=== PATIENT | female | born 1960 | race African-American/Black ===

== ENCOUNTER 2016-11-04 20:03 | Emergency (ER) | payer OTHER ==
[2016-11-04 20:49] VITALS: BMI 38.4
--- NOTE | 2016-11-04 21:34 | PDOC ---
History of Present Illness - General Chief Complaint: Lightheaded Stated Complaint: DIZZINESS Time Seen by Provider: 11/04/16 20:52 - History of Present Illness Initial Comments: 11/04/16 21:31 Patient is a 56 year old female with a history of HTN, HLD, DM who presents with complaints of lightheadedness. The patient reports that she began experiencing a sensation of lightheadedness while watching television 7 hours ago. She reports getting up and getting water from the kitchen as well as a cold towel to put on her forehead as well as trying a cold shower to help relieve her symptoms. She continued to be symptomatic as well as feeling unsteady while standing prompting her visit to the ED today. She reports that she had a similar episode in the past in which she received fluids which improved her symptoms. She denies any headache, weakness, chest pain, or SOB. Past History - Past Medical History Allergies/Adverse Reactions: Allergies Allergy/AdvReac Type Severity Reaction Status Date / Time shellfish derived Allergy Verified 10/05/14 09:15 FRUIT Allergy Uncoded 10/05/14 09:15 Home Medications: Ambulatory Orders Amlodipine Bes/Olmesartan Med [Alvarado 10-40 mg Tablet] 10 - 40 each PO DAILY 10/05 Aspirin [ASA -] 81 mg PO DAILY 10/05/14 Hydralazine HCl 25 mg PO DAILY 10/05/14 Amlodipine Bes/Olmesartan Med [Amlodipine-Olmesartan 10-40 mg] 1 each PO DAILY 11/04/16 Ascorbic Acid/Ascorbate Sodium [Vit C-Sussy Hips 500 mg Chew Tb] 500 mg DAILY 08/18 Aspirin [Aspirin EC] 81 mg PO DAILY 11/04/16 Cyclobenzaprine HCl 5 mg PO DAILY 11/04/16 Hydrochlorothiazide 25 mg PO DAILY 11/04/16 Loratadine 10 mg PO DAILY 11/04/16 Anemia: No Asthma: No Cancer: No Cardiac Disorders: Yes CVA: No COPD: No CHF: No Dementia: No Diabetes: No GI Disorders: No Disorders: No HTN: Yes Hypercholesterolemia: Yes Liver Disease: No Seizures: No Thyroid Disease: No - Surgical History Abdominal Surgery: No Appendectomy: No Cardiac Surgery: No Cholecystectomy: No Lung Surgery: No Neurologic Surgery: No Orthopedic Surgery: Yes (Ankle) - Psycho/Social/Smoking Cessation Hx Anxiety: No Suicidal Ideation: No Smoking Status: No Smoking History: Unknown if ever smoked Have you smoked in the past 12 months: No Number of Cigarettes Smoked Daily: 0 Hx Alcohol Use: No Drug/Substance Use Hx: No Substance Use Type: None Hx Substance Use Treatment: No Review of Systems - Review of Systems Constitutional: No: Chills, Fever, Weakness HEENTM: No: Recent change in vision, Double Vision Respiratory: No: Cough, Shortness of Breath Cardiac (ROS): No: Chest Pain, Palpitations, Chest Tightness ABD/GI: No: Constipated, Diarrhea, Nausea, Vomiting : No: Dysuria Neurological: No: Headache, Numbness, Paresthesia *Physical Exam - Vital Signs Last Vital Signs Temp Pulse Resp BP Pulse Ox 98.6 F 68 16 117/68 100 11/04/16 20:46 11/04/16 20:46 11/04/16 20:46 11/04/16 20:46 11/04/16 20:46 - Physical Exam General Appearance: Yes: Nourished, Obese. No: Apparent Distress HEENT: positive: EOMI, CHERYL, Normal Voice Respiratory/Chest: positive: Lungs Clear, Normal Breath Sounds. negative: Rales , Rhonchi, Wheezing Cardiovascular: positive: Regular Rhythm, Regular Rate. negative: Murmur, Gallop/S3, Gallop/S4 Gastrointestinal/Abdominal: positive: Normal Bowel Sounds, Soft. negative: Guarding, Rebound, Tenderness Extremity: positive: Normal Capillary Refill. negative: Coldness, Cyanosis Integumentary: positive: Normal Color, Dry, Warm Neurologic: positive: bean sorter II-XII NML intact, Fully Oriented, Alert, Normal Mood/ Affect, Normal Response ED Treatment Course - LABORATORY CBC & Chemistry Diagram: 11/05/16 04:18 11/05/16 04:18 Medical Decision Making - Medical Decision Making 11/04/16 21:52 Patient is a 56 year old female with a history of HTN, HLD, DM who presents with a complaint of lightheadedness. Given the patient's history, relatively benign physical exam, and previous similar presentation due to dehydration, we believe that dehydration may be the most likely cause of her symptoms. However , given the patients age and comorbidities, we feel it is reasonable to rule out any intracranial process though less likely given her non-focal neurological exam. We will obtain labs to evaluate her electrolyte status as well as obtain a head CT to rule out intracranial process. We will give her some fluids in the ED to rehydrate her. 11/05/16 18:39 Patient's labs demonstrated hypokalemia and we will repleat her potassium and recheck labs to make sure it trends positive. Patient's head CT was read by the radiologist as no intracranial process. *DC/Admit/Observation/Transfer Diagnosis at time of Disposition: Hypokalemia, Dizziness - Discharge Dispostion Disposition: HOME Condition at time of disposition: Improved - Patient Instructions Printed Discharge Instructions: DI for Hypokalemia, DI for Dizziness-Nonvertigo - Attestations Physician Attestion: 11/04/16 22:04 I, Dr. Maciej Grayson, attest that this document has been prepared under my direction and personally reviewed by me in its entirety. I further attest, that it accurately reflects all work, treatment, procedures and medical decision -making performed by me.
[2016-11-04] MEDS ORDERED: SODIUM CHLORIDE 1,000 ML IV STA (21:41)
[2016-11-04 22:51] LABS: INR 0.99 (0.82-1.09); PROTHROMBIN TIME (PATIENT) 10.9 SEC (9.98-11.88)
[2016-11-04 22:58] LABS: ALBUMIN 3.7 g/dl (3.4-5.0); ANION GAP 10 (8-16); BILIRUBIN,TOTAL 0.4 mg/dL (0.2-1.0); CALCIUM 8.8 mg/dL (8.5-10.1); CO2 29 mmol/L (21-32); CREATININE 0.7 mg/dL (0.55-1.02); GLUCOSE,RANDOM 102 mg/dL (74-106); SGOT/AST 21 U/L (15-37); SGPT/ALT 22 U/L (12-78)
[2016-11-04 22:59] LABS: ALK PHOS 93 U/L (45-117)
[2016-11-04] MEDS ORDERED: POTASSIUM CHLORIDE TABS 20 MEQ TABLET.ER (FP) PO ONE ×2 (23:03→23:20)
--- NOTE | 2016-11-04 23:11 | PDOC ---
*Physical Exam - Vital Signs Last Vital Signs Temp Pulse Resp BP Pulse Ox 98.6 F 68 16 117/68 100 11/04/16 20:46 11/04/16 20:46 11/04/16 20:46 11/04/16 20:46 11/04/16 20:46 <Jovi Cardenas - Last Filed: 11/04/16 23:25> - Vital Signs Last Vital Signs Temp Pulse Resp BP Pulse Ox 98.6 F 68 16 117/68 100 11/04/16 20:46 11/04/16 20:46 11/04/16 20:46 11/04/16 20:46 11/04/16 20:46 <Gallo Cabrera - Last Filed: 11/05/16 05:05> Heart Score/ECG Review - ECG Impressions Comment:: 11/04/16 23:25 Sinus bradycardia. Possible left atrial enlargement. Left axis deviation. Left ventricular hypertrophy. Cannot rule out septa infarct, age undetermined. Abnormal ECG. <Jovi Cardenas - Last Filed: 11/04/16 23:25> ED Treatment Course - LABORATORY CBC & Chemistry Diagram: 11/04/16 22:29 - ADDITIONAL ORDERS Additional order review: Laboratory Results 11/04/16 11/04/16 22:29 22:29 INR 0.99 Sodium 129 L Potassium 2.9 L* D Chloride 90 L D Carbon Dioxide 29 Anion Gap 10 BUN 9 D Creatinine 0.7 Creat Clearance w eGFR > 60 Random Glucose 102 Calcium 8.8 Total Bilirubin 0.4 AST 21 D ALT 22 Alkaline Phosphatase 93 Total Protein 7.0 Albumin 3.7 - Medications Given in the ED: ED Medications Discontinued Medications Generic Name Dose Route Start Last Admin Trade Name Freq PRN Reason Stop Dose Admin Sodium Chloride 1,000 mls @ 1,000 mls/hr 11/04/16 21:41 11/04/16 21:45 Normal Saline - IV 11/04/16 22:40 1,000 mls/hr ASDIR STA Administration Potassium Chloride 40 meq 11/04/16 23:03 11/04/16 23:22 K-Dur - PO 11/04/16 23:04 40 meq ONCE ONE Administration <Jovi Cardenas - Last Filed: 11/04/16 23:25> - LABORATORY CBC & Chemistry Diagram: 11/05/16 04:18 07/05/17 04:18 - ADDITIONAL ORDERS Additional order review: Laboratory Results 11/04/16 11/04/16 22:29 22:29 INR 0.99 Sodium 129 L Potassium 2.9 L* D Chloride 90 L D Carbon Dioxide 29 Anion Gap 10 BUN 9 D Creatinine 0.7 Creat Clearance w eGFR > 60 Random Glucose 102 Calcium 8.8 Total Bilirubin 0.4 AST 21 D ALT 22 Alkaline Phosphatase 93 Total Protein 7.0 Albumin 3.7 - Medications Given in the ED: ED Medications Discontinued Medications Generic Name Dose Route Start Last Admin Trade Name Shawnq PRN Reason Stop Dose Admin Sodium Chloride 1,000 mls @ 1,000 mls/hr 11/04/16 21:41 11/04/16 21:45 Normal Saline - IV 11/04/16 22:40 1,000 mls/hr ASDIR STA Administration <Gallo Cabrera - Last Filed: 11/05/16 05:05> *DC/Admit/Observation/Transfer <Jovi Cardenas - Last Filed: 11/04/16 23:25> - Discharge Dispostion Admit: No <Gallo Cabrera - Last Filed: 11/05/16 05:05> Diagnosis at time of Disposition: Hypokalemia, Dizziness - Discharge Dispostion Disposition: HOME Condition at time of disposition: Improved - Patient Instructions Printed Discharge Instructions: DI for Hypokalemia, DI for Dizziness-Nonvertigo
[2016-11-04] MEDS ORDERED: KCL 10 MEQ IVPB 100 ML IVPB ONE (23:34)
[2016-11-04] MEDS: KCL 10 MEQ IVPB 100 ML IVPB SCH (23:44)
[2016-11-05] MEDS: KCL 10 MEQ IVPB 100 ML IVPB SCH (02:10)
[2016-11-05] MEDS ORDERED: KCL 10 MEQ IVPB 100 ML IVPB ONE (02:18)
[2016-11-05] MEDS ORDERED: POTASSIUM CHLORIDE TABS 20 MEQ TABLET.ER (FP) PO ONE ×2 (02:59→03:48)
[2016-11-05 04:25] LABS: BASOPHIL 1.5 % (0-2.0); EOSINOPHIL 3.6 % (0-4.5); MCH 24.9 pg (25.7-33.7); MCHC 32.2 g/dl (32.0-36.0); MEAN CELL VOLUME 77.3 fl (80-96); MEAN PLT VOLUME 7.8 fl (7.5-11.1); NEUTROPHILS 35.2 % (42.8-82.8); PLATELET COUNT 258 K/MM3 (134-434); RDW 17.5 % (11.6-15.6); WHITE BLOOD COUNT 3.1 K/mm3 (4.0-10.0)
[2016-11-05 04:47] LABS: ANION GAP 6 (8-16); CALCIUM 8.6 mg/dL (8.5-10.1); CO2 28 mmol/L (21-32); CREATININE 0.7 mg/dL (0.55-1.02); GLUCOSE,RANDOM 103 mg/dL (74-106)
[2016-11-05 05:39] VITALS: BP 120/70; PULSE 70; TEMP 98.3
--- NOTE | 2016-11-05 10:42 | EKG ---
Test Reason : Blood Pressure : / mmHG Vent. Rate : 056 BPM Atrial Rate : 056 BPM P-R Int : 178 ms QRS Dur : 096 ms QT Int : 440 ms P-R-T Axes : 062 -43 -18 degrees QTc Int : 424 ms SINUS BRADYCARDIA POSSIBLE LEFT ATRIAL ENLARGEMENT LEFT AXIS DEVIATION LEFT VENTRICULAR HYPERTROPHY CANNOT RULE OUT SEPTAL INFARCT (CITED ON OR BEFORE 05-OCT-2014) ABNORMAL ECG WHEN COMPARED WITH ECG OF 06-OCT-2014 08:31, PREMATURE SUPRAVENTRICULAR COMPLEXES ARE NO LONGER PRESENT QUESTIONABLE CHANGE IN INITIAL FORCES OF SEPTAL LEADS Confirmed by CHANDLER CLAROS MD ([id number]) on 11/05/2016 10:42:07 AM Referred By: Confirmed By:CHANDLER CLAROS MD
== END 2016-11-05 05:40 | disposition home or self-care (01) ==
LOC: JER 20:03
PROC: 3E0337Z Introduction of Electrolytic and Water Balance Substance into Peripheral Vein, Percutaneous Approach (ICD-10-PCS; principal; 2016-11-04)
PROC: 3E033GC Introduction of Other Therapeutic Substance into Peripheral Vein, Percutaneous Approach (ICD-10-PCS; 2016-11-04)
DX: E87.6 Hypokalemia (principal); I10 Essential (primary) hypertension; E78.00 Pure hypercholesterolemia, unspecified
CPT/HCPCS: 36415; 70450-TC; 80048; 80053; 85025; 85610; 93005; 93010; 96361; 96365; 96366; 99284-25

== ENCOUNTER 2016-11-27 14:40 | Emergency (ER) | payer OTHER ==
--- NOTE | 2016-11-27 14:58 | PDOC ---
History of Present Illness - General History Source: Patient Exam Limitations: No Limitations - History of Present Illness Initial Comments: 11/27/16 15:39 Patient is a 56 year old female with a history of HTN, HLD, DM who presents with complaints of lightheadedness. Pt was seen in the ED on 11/04 for similar complaints. She states that she began to experience dizziness while she was eating lunch. Pt put a cold rag on her head and was standing in front of the AC to try to relieve her symptoms. Symptoms continued to feel dizzy and called EMS. The patient denies any fever, chills, nausea, vomiting, or abdominal pain. She denies any headache. <Libby Melchor - Last Filed: 11/27/16 15:39> <Jet Le - Last Filed: 11/27/16 18:49> - General Stated Complaint: DIZZINESS Time Seen by Provider: 11/27/16 14:50 Past History <Libby Melchor - Last Filed: 11/27/16 15:39> - Past Medical History Anemia: No Asthma: No Cancer: No Cardiac Disorders: Yes CVA: No COPD: No CHF: No Dementia: No Diabetes: No GI Disorders: No Disorders: No HTN: Yes Hypercholesterolemia: Yes Liver Disease: No Seizures: No Thyroid Disease: No - Surgical History Abdominal Surgery: No Appendectomy: No Cardiac Surgery: No Cholecystectomy: No Lung Surgery: No Neurologic Surgery: No Orthopedic Surgery: Yes (Ankle) - Immunization History Immunization Up to Date: Yes - Psycho/Social/Smoking Cessation Hx Anxiety: No Suicidal Ideation: No Smoking Status: No Smoking History: Unknown if ever smoked Have you smoked in the past 12 months: No Number of Cigarettes Smoked Daily: 0 Hx Alcohol Use: No Drug/Substance Use Hx: No Substance Use Type: None Hx Substance Use Treatment: No <Jet Le - Last Filed: 11/27/16 18:49> - Past Medical History Allergies/Adverse Reactions: Allergies Allergy/AdvReac Type Severity Reaction Status Date / Time shellfish derived Allergy Verified 11/27/16 17:47 FRUIT Allergy Uncoded 11/27/16 17:47 Home Medications: Ambulatory Orders Amlodipine Bes/Olmesartan Med [Alvarado 10-40 mg Tablet] 10 - 40 each PO DAILY 10/05 Hydralazine HCl 25 mg PO DAILY 06/04/15 Amlodipine Bes/Olmesartan Med [Amlodipine-Olmesartan 10-40 mg] 1 each PO DAILY 11/04/16 Ascorbic Acid/Ascorbate Sodium [Vit C-Sussy Hips 500 mg Chew Tb] 500 mg DAILY 08/18 Aspirin [Aspirin EC] 81 mg PO DAILY 11/04/16 Cyclobenzaprine HCl 5 mg PO DAILY 11/04/16 Hydrochlorothiazide 25 mg PO DAILY 11/04/16 Loratadine 10 mg PO DAILY 11/04/16 Cephalexin Monohydrate [Keflex -] 500 mg PO Q6H #40 capsule 11/27/16 Meclizine HCl [Antivert -] 25 mg PO TID #90 tablet 11/27/16 Review of Systems - Review of Systems Able to Perform ROS?: Yes Comments:: 11/27/16 15:40 GENERAL/CONSTITUTIONAL: No fever or chills. No weakness. HEAD, EYES, EARS, NOSE AND THROAT: No change in vision. No ear pain or discharge. No sore throat. CARDIOVASCULAR: No chest pain or shortness of breath. RESPIRATORY: No cough, wheezing, or hemoptysis. SKIN: No rash GASTROINTESTINAL: No nausea, vomiting, diarrhea or constipation. GENITOURINARY: No dysuria, frequency, or change in urination. MUSCULOSKELETAL: No joint or muscle swelling or pain. No neck or back pain. NEUROLOGIC: No headache, loss of consciousness, or change in strength/ sensation. +dizziness ENDOCRINE: No increased thirst. No abnormal weight change. HEMATOLOGIC/LYMPHATIC: No anemia, easy bleeding, or history of blood clots. ALLERGIC/IMMUNOLOGIC: No hives or skin allergy. <Libby Melchor - Last Filed: 11/27/16 15:39> *Physical Exam - Vital Signs Last Vital Signs Temp Pulse Resp BP Pulse Ox 98.2 F 71 18 127/52 96 11/27/16 14:45 11/27/16 14:45 11/27/16 14:45 11/27/16 14:45 11/27/16 14:45 - Physical Exam Comments: 11/27/16 15:41 GENERAL: Awake, alert, and fully oriented, in no acute distress HEAD: No signs of trauma ENT: Auricles normal inspection, hearing grossly normal, nares patent, oropharynx clear EYES: PERRLA, EOMI, sclera anicteric, conjunctiva clear without exudates. Moist mucosa. NECK: Normal ROM, supple, no lymphadenopathy, JVD, or masses LUNGS: Breath sounds equal, clear to auscultation bilaterally. No wheezes, and no crackles HEART: Regular rate and rhythm, normal S1 and S2, no murmurs, rubs or gallops ABDOMEN: Soft, nontender, normoactive bowel sounds. No guarding, no rebound. No masses EXTREMITIES: Normal range of motion, no edema. No clubbing or cyanosis. No cords, erythema, or tenderness NEUROLOGICAL: Cranial nerves II through XII grossly intact. Normal speech. SKIN: Warm, Dry, normal turgor, no rashes or lesions noted <Libby Melchor - Last Filed: 11/27/16 15:39> ED Treatment Course - LABORATORY CBC & Chemistry Diagram: 11/27/16 15:46 11/27/16 17:53 <Jet Le - Last Filed: 11/27/16 18:49> *DC/Admit/Observation/Transfer - Attestations Scribe Attestion: 11/27/16 15:41 Documentation prepared by Libby Melchor, acting as ophthalmic medical technologist for Jet Le MD. <Libby Melchor - Last Filed: 11/27/16 15:39> - Discharge Dispostion Admit: No - Attestations Physician Attestion: 11/27/16 14:50 I, Dr. Jet Le, attest that this document has been prepared under my direction and personally reviewed by me in its entirety. I further attest, that it accurately reflects all work, treatment, procedures and medical decision -making performed by me. <Jet Le - Last Filed: 11/27/16 18:49> Diagnosis at time of Disposition: Vertigo Urinary tract infection Qualifiers: Urinary tract infection type: site unspecified Hematuria presence: without hematuria Qualified Code(s): N39.0 - Urinary tract infection, site not specified - Discharge Dispostion Disposition: HOME Condition at time of disposition: Good - Prescriptions Prescriptions: Meclizine HCl [Antivert -] 25 mg PO TID #90 tablet Cephalexin Monohydrate [Keflex -] 500 mg PO Q6H #40 capsule - Referrals Referrals: Ammon Singh MD [Primary Care Provider] - - Patient Instructions Printed Discharge Instructions: DI for Vertigo, DI for Meniere's Disease, DI for Urinary Tract Infection (UTI) Additional Instructions: Mrs Palm - So sorry this is still going on. Use the antivert for the dizziness. Keflex is four times a day for ten days for a UTI. Return to us if problems. Follow up with your doctor next week. Hope you feel better soon. Best- Dr. Jet Le
[2016-11-27 15:12] VITALS: TEMP 98.2; BMI 37.8
[2016-11-27] MEDS ORDERED: MECLIZINE HCL 25 MG TABLET (FP) PO ONE ×2 (15:43→18:57)
[2016-11-27] MEDS ORDERED: MECLIZINE HCL 25 MG TABLET (FP) ONE ×2 (15:52→19:06)
[2016-11-27 16:25] LABS: BASOPHIL 0.7 % (0-2.0); EOSINOPHIL 1.2 % (0-4.5); MCH 25.5 pg (25.7-33.7); MCHC 32.7 g/dl (32.0-36.0); MEAN CELL VOLUME 77.8 fl (80-96); NEUTROPHILS 72.6 % (42.8-82.8); PLATELET COUNT 342 K/MM3 (134-434); RDW 17.6 % (11.6-15.6); WHITE BLOOD COUNT 6.7 K/mm3 (4.0-10.0)
[2016-11-27 16:35] LABS: INR 0.98 (0.82-1.09); PROTHROMBIN TIME (PATIENT) 10.8 SEC (9.98-11.88)
[2016-11-27 16:36] LABS: URINE APPEARANCE CLEAR; URINE BILIRUBIN NEGATIVE (NEGATIVE); URINE BLOOD NEGATIVE (NEGATIVE); URINE COLOR STRAW; URINE GLUCOSE (UA) NEGATIVE (NEGATIVE); URINE KETONE NEGATIVE (NEGATIVE); URINE LEUK ESTERASE TRACE (NEGATIVE); URINE NITRITE NEGATIVE (NEGATIVE); URINE PROTEIN NEGATIVE (NEGATIVE); URINE UROBILINOGEN NEGATIVE mg/dL (0.2-1.0)
[2016-11-27 17:51] LABS: URINE RBC <1/HPF /hpf (0-3)
[2016-11-27 17:52] LABS: URINE WBC 1/HPF /hpf (3-5)
[2016-11-27 18:37] LABS: ALBUMIN 3.4 g/dl (3.4-5.0); ANION GAP 9 (8-16); BILIRUBIN,TOTAL 0.5 mg/dL (0.2-1.0); CALCIUM 9.3 mg/dL (8.5-10.1); CO2 28 mmol/L (21-32); CREATININE 0.7 mg/dL (0.55-1.02); GLUCOSE,RANDOM 77 mg/dL (74-106); SGOT/AST 17 U/L (15-37); SGPT/ALT 19 U/L (12-78); TOT PROT 7.2 g/dl (6.4-8.2)
[2016-11-27 18:40] LABS: ALK PHOS 87 U/L (45-117); TROPONIN I < 0.02 ng/ml (0.00-0.05)
[2016-11-27] MEDS ORDERED: CEPHALEXIN MONOHYDRATE 500 MG CAPSULE (UD) PO ONE (18:57)
[2016-11-27] MEDS ORDERED: CEPHALEXIN MONOHYDRATE 250 MG CAPSULE (FP) ONE (19:07)
[2016-11-27 19:16] VITALS: BP 130/70; PULSE 72
--- NOTE | 2016-11-28 09:21 | EKG ---
Test Reason : Blood Pressure : / mmHG Vent. Rate : 080 BPM Atrial Rate : 080 BPM P-R Int : 156 ms QRS Dur : 090 ms QT Int : 394 ms P-R-T Axes : 061 -49 010 degrees QTc Int : 454 ms NORMAL SINUS RHYTHM LEFT ANTERIOR FASCICULAR BLOCK MODERATE VOLTAGE CRITERIA FOR LVH, MAY BE NORMAL VARIANT NONSPECIFIC ST ABNORMALITY ABNORMAL ECG Confirmed by JORDI TORRES MD ([id number]) on 11/28/2016 9:21:19 AM Referred By: Confirmed By:JORDI TORRES MD
== END 2016-11-27 19:56 | disposition home or self-care (01) ==
LOC: JER 14:40
DX: N39.0 Urinary tract infection, site not specified (principal); R42 Dizziness and giddiness; I10 Essential (primary) hypertension; E78.00 Pure hypercholesterolemia, unspecified
CPT/HCPCS: 36415; 80053; 81003; 81015; 82550; 83690; 84484; 85025; 85610; 93005; 93010; 99282-25

== ENCOUNTER 2017-10-20 11:25 | Observation (INO) | payer OTHER ==
[2017-10-20] MEDS ORDERED: SODIUM CHLORIDE 1,000 ML IV STA (11:41)
[2017-10-20] MEDS ORDERED: FAMOTIDINE 20 MG/50 ML IVPB 20 MG/50 ML MG IVPB ONE ×2 (11:42→11:53)
[2017-10-20] MEDS ORDERED: methylPREDNISolone NA SUCC 125 MG/2 ML VIAL IVPUSH ONE (11:42)
--- NOTE | 2017-10-20 11:48 | PDOC ---
History of Present Illness - General Chief Complaint: Syncope/Near Syncope Stated Complaint: Syncope/Near Syncope Time Seen by Provider: 10/20/17 11:28 History Source: Patient, EMS, Other (ent doc) - History of Present Illness Timing/Duration: 1 hour Severity: severe Associated Symptoms: reports: nausea/vomiting. denies: chest pain, diaphoresis , seizure Past History - Past Medical History Allergies/Adverse Reactions: Allergies Allergy/AdvReac Type Severity Reaction Status Date / Time shellfish derived Allergy Verified 11/27/16 17:47 FRUIT Allergy Uncoded 11/27/16 17:47 Home Medications: Ambulatory Orders Amlodipine Bes/Olmesartan Med [Alvarado 10-40 mg Tablet] 10 - 40 each PO DAILY 10/05 Hydralazine HCl 25 mg PO DAILY 10/05/14 Amlodipine Bes/Olmesartan Med [Amlodipine-Olmesartan 10-40 mg] 1 each PO DAILY 11/04/16 Ascorbic Acid/Ascorbate Sodium [Vit C-Sussy Hips 500 mg Chew Tb] 500 mg DAILY 08/18 Aspirin [Aspirin EC] 81 mg PO DAILY 11/04/16 Cyclobenzaprine HCl 5 mg PO DAILY 11/04/16 Hydrochlorothiazide 25 mg PO DAILY 11/04/16 Loratadine 10 mg PO DAILY 11/04/16 Cephalexin Monohydrate [Keflex -] 500 mg PO Q6H #40 capsule 11/27/16 Meclizine HCl [Antivert -] 25 mg PO TID #90 tablet 11/27/16 Anemia: No Asthma: No Cancer: No Cardiac Disorders: Yes CVA: No COPD: No CHF: No Dementia: No Diabetes: No GI Disorders: No Disorders: No HTN: Yes Hypercholesterolemia: Yes Liver Disease: No Seizures: No Thyroid Disease: No - Surgical History Abdominal Surgery: No Appendectomy: No Cardiac Surgery: No Cholecystectomy: No Lung Surgery: No Neurologic Surgery: No Orthopedic Surgery: Yes (Ankle) - Immunization History Immunization Up to Date: Yes - Suicide/Smoking/Psychosocial Hx Smoking Status: No Smoking History: Unknown if ever smoked Have you smoked in the past 12 months: No Number of Cigarettes Smoked Daily: 0 Hx Alcohol Use: No Drug/Substance Use Hx: No Substance Use Type: None Hx Substance Use Treatment: No Review of Systems - Review of Systems Constitutional: No: Fever Respiratory: No: Shortness of Breath, Wheezing Cardiac (ROS): No: Chest Pain ABD/GI: Yes: Nausea. No: Vomiting *Physical Exam - Vital Signs Last Vital Signs Temp Pulse Resp BP Pulse Ox 97.3 F L 56 L 16 95/65 97 10/20/17 11:25 10/20/17 11:25 10/20/17 11:25 10/20/17 11:25 10/20/17 11:25 - Physical Exam General Appearance: Yes: Appropriately Dressed. No: Apparent Distress HEENT: positive: Normal Voice, Pharynx Normal, Other (no angioedema). negative : Scleral Icterus (R), Scleral Icterus (L), Muffled/Hoarse voice Neck: positive: Supple. negative: Stridor Respiratory/Chest: positive: Lungs Clear, Normal Breath Sounds. negative: Respiratory Distress Cardiovascular: positive: Regular Rate, S1, S2 Gastrointestinal/Abdominal: positive: Soft. negative: Tender Integumentary: positive: Dry, Warm Neurologic: positive: Fully Oriented, Alert, Normal Mood/Affect ED Treatment Course - LABORATORY CBC & Chemistry Diagram: 10/20/17 11:54 10/20/17 11:54 Medical Decision Making - Medical Decision Making 10/20/17 11:44 57 yo F, h/o HTN, HLD, GERD, cochlear implants, multiple environmental allergies and currently undergoing build-up phase of allergen immunotherapy ( currently on highest desensitization dose), s/p immunotherapy this am in ENT clinic and now BIB EMS after presumed anaphylactic rxn. Pt states several minutes after receiving injections this am, she began feeling dizzy and not feeling well. BP at scene 80/50 and at some point, pt became unresponsive per EMT. was immediately given 0.3 mg IM epi by Dr Langford of ENT w/ immediate recovery. Pt c/o nausea and vague abd pain at scene. Has since been given 500 mL IV fluid and a dose of Zofran enroute by EMS. Patient states she feels a lot better. Denies throat pain, voice changes, stridor, chest pain or shortness of breath at this time. No history of anaphylaxis in the past. No known medication allergy. Is allergic to shellfish See exam Anaphylaxis Improved w/ epipen but hypotensive in ED No resp distress at this time w/ clear chets/lungs -benadryl -solumedrol -pepcid -contact Dr Langford for collateral info -m/l admit 10/20/17 12:[address] Langford who confirmed information above. [facility] patient is currently receiving allergen immunotherapy for pollen, weed, cockroach, etc. and currently on highest dose of desensitizing injections. [facility] patient has never had an allergic reaction to injections in past and that it is possible that she developed anaphylaxis now given current high dose of desensitizing injections. Agrees with Benadryl and Pepcid in ED, but [facility] would hold off on giving solu-medrol given that patient gets very anxious after given meds and that there is no proven benefit to steroids in managing anaphylaxis. Favian states he would like to be contacted on his mobile phone at [phone] to get update on patient 10/20/17 13:53 Case d/w Dr Ammon Singh who wants pt admitted to tele under Dr Green. Dr Green made aware. Pt remains stable now w/ BP of 121/70 *DC/Admit/Observation/Transfer Diagnosis at time of Disposition: Anaphylaxis Qualifiers: Encounter type: initial encounter Qualified Code(s): T78.2XXA - Anaphylactic shock, unspecified, initial encounter - Discharge Dispostion Condition at time of disposition: Improved Decision to Admit order: Yes - Referrals Referrals: Ammon Singh MD [Primary Care Provider] - - Patient Instructions - Post Discharge Activity
[2017-10-20] MEDS ORDERED: methylPREDNISolone NA SUCC 125 MG/2 ML VIAL ONE (11:53)
[2017-10-20 13:25] LABS: CHLORIDE 112 mmol/L (98-107); POTASSIUM 3.8 mmol/L (3.5-5.1); SODIUM 144 mmol/L (136-145)
[2017-10-20 13:28] LABS: BLOOD UREA NITROGEN 22 mg/dL (7-18); GLUCOSE,RANDOM 111 mg/dL (74-106)
[2017-10-20 13:29] LABS: ALBUMIN 3.3 g/dl (3.4-5.0); ANION GAP 10 (8-16); BILIRUBIN,TOTAL 0.3 mg/dL (0.2-1.0); CALCIUM 8.2 mg/dL (8.5-10.1); CO2 22 mmol/L (21-32); CREATININE 0.8 mg/dL (0.55-1.02); SGOT/AST 14 U/L (15-37)
[2017-10-20 13:33] LABS: ALK PHOS 86 U/L (45-117); SGPT/ALT 20 U/L (12-78)
[2017-10-20 13:36] LABS: TOT PROT 6.5 g/dl (6.4-8.2)
[2017-10-20 15:05] LABS: ALBUMIN 3.4 g/dl (3.4-5.0); ALK PHOS 88 U/L (45-117); ANION GAP 8 (8-16); BILIRUBIN,TOTAL 0.4 mg/dL (0.2-1.0); BLOOD UREA NITROGEN 20 mg/dL (7-18); CALCIUM 8.1 mg/dL (8.5-10.1); CHLORIDE 111 mmol/L (98-107); CO2 25 mmol/L (21-32); CREATININE 0.7 mg/dL (0.55-1.02); GLUCOSE,RANDOM 83 mg/dL (74-106); POTASSIUM 3.9 mmol/L (3.5-5.1); SGOT/AST 15 U/L (15-37); SGPT/ALT 21 U/L (12-78); SODIUM 144 mmol/L (136-145); TOT PROT 6.7 g/dl (6.4-8.2)
--- NOTE | 2017-10-20 16:00 | EKG ---
Test Reason : Blood Pressure : / mmHG Vent. Rate : 074 BPM Atrial Rate : 074 BPM P-R Int : 172 ms QRS Dur : 090 ms QT Int : 416 ms P-R-T Axes : 058 -51 -32 degrees QTc Int : 461 ms SINUS RHYTHM WITH PREMATURE ATRIAL COMPLEXES LEFT ANTERIOR FASCICULAR BLOCK MODERATE VOLTAGE CRITERIA FOR LVH, MAY BE NORMAL VARIANT ANTEROSEPTAL INFARCT , AGE UNDETERMINED T WAVE ABNORMALITY, CONSIDER INFEROLATERAL ISCHEMIA ABNORMAL ECG Confirmed by MD MICHAELA, DAVE ([id number]) on 10/20/2017 3:59:43 PM Referred By: Confirmed By:DAVE JENNINGS MD
[2017-10-20 19:38] LABS: BASO % 0.3 % (0-2.0); HEMATOCRIT 35.9 % (32.4-45.2); HEMOGLOBIN 11.5 GM/dL (10.7-15.3); LYMPH % 4.6 % (8-40); MCH 24.7 pg (25.7-33.7); MCHC 32.1 g/dl (32.0-36.0); MEAN CELL VOLUME 76.9 fl (80-96); MEAN PLT VOLUME 8.2 fl (7.5-11.1); MONO % 0.6 % (3.8-10.2); NEUT % 94.5 % (42.8-82.8); PLATELET COUNT 296 K/MM3 (134-434); RBC 4.67 M/mm3 (3.60-5.2); RDW 17.2 % (11.6-15.6); WHITE BLOOD COUNT 9.7 K/mm3 (4.0-10.0)
[2017-10-20] MEDS ORDERED: diphenhydrAMINE HCL 25 MG CAPSULE (FP) PO PRN (22:00)
--- NOTE | 2017-10-20 22:03 | HP ---
Admitting History and Physical - Admission History of Present Illness: Pt is a 57 y/o female w/ PMH significant for HTN, HLD, GERD, hearing loss and cochlear implants. Pt is seeing an ENT due to multiple environmental allergies and currently undergoing build-up phase of allergen immunotherapy (currently on highest desensitization dose). Pt was in ENT office and had received an allergy shot and subsequently developed dizzyness, nausea w/ LOC. In the ENT office when pt became unresponsive she was given 0.3 mg IM epi by Dr Langford of ENT w/ immediate recovery. 911 was called and was brought into ER by EMS after presumed anaphylactic rxn. Initially BP at scene was 80/50 and was given IVF. Pt is now feeling fine w/ no further complaints. - Past Medical History [employer]: Yes: Other ("mild" mental deficiency) Cardiovascular: Yes: HTN, Hyperlipdemia - Smoking History Smoking history: Unknown if ever smoked Have you smoked in the past 12 months: No Aproximately how many cigarettes per day: 0 - Alcohol/Substance Use Hx Alcohol Use: No History of Substance Use: reports: None - Social History ADL: Independent History of Recent Travel: No Home Medications - Allergies Allergies/Adverse Reactions: Allergies Allergy/AdvReac Type Severity Reaction Status Date / Time shellfish derived Allergy Verified 11/27/16 17:47 FRUIT Allergy Uncoded 11/27/16 17:47 - Home Medications Home Medications: Ambulatory Orders Amlodipine Bes/Olmesartan Med [Alvarado 10-40 mg Tablet] 1 each PO DAILY 10/20/17 Ascorbic Acid [Vitamin C] 500 mg PO DAILY 10/20/17 Aspirin [Ecotrin] 81 mg PO DAILY 10/20/17 Pantoprazole Sodium [Protonix] 40 mg PO DAILY 10/20/17 Family Disease History - Family Disease History Family History: Unremarkable Family Disease History: Heart Disease: Mother (mild IN in her ?60s), Brother ( IN early 60s) Review of Systems - Review of Systems Constitutional: reports: No Symptoms Neck: reports: No Symptoms Cardiovascular: reports: No Symptoms Respiratory: reports: No Symptoms Gastrointestinal: reports: Nausea Neurological: reports: Change in LOC Physical Examination Vital Signs: Vital Signs Temperature 98.2 F 10/20/17 20:59 Pulse Rate 73 10/20/17 20:59 Respiratory Rate 17 10/20/17 20:59 Blood Pressure 135/74 10/20/17 20:59 O2 Sat by Pulse Oximetry (%) 99 10/20/17 20:59 Eyes: Yes: WNL Neck: Yes: WNL, Supple Cardiovascular: Yes: WNL, Regular Rate and Rhythm Respiratory: Yes: WNL, Regular, CTA Bilaterally Gastrointestinal: Yes: WNL, Normal Bowel Sounds, Soft Musculoskeletal: Yes: WNL Extremities: Yes: WNL Edema: No Neurological: Yes: WNL, Alert, Oriented ...Motor Strength: WNL Labs: CBC, BMP 10/20/17 18:55 10/20/17 13:35 Problem List - Problems (1) Syncope Assessment/Plan: Probable vasovagal Due to anaphylactic rx'n Monitor on tele Check echo Cardio consult Check serial cpk/troponin COnt IVF Code(s): R55 - SYNCOPE AND COLLAPSE (2) Hypertension Assessment/Plan: Hold antihypertenives due to episode of hypotension Restart BP meds once BP improves Code(s): I10 - ESSENTIAL (PRIMARY) HYPERTENSION
[2017-10-20 22:14] VITALS: BMI 37.5
[2017-10-20] MEDS: DEXTROSE 5%-0.45% SALINE 1,000 ML IV SCH (22:29)
[2017-10-20] MEDS: RANITIDINE HCL 150 MG TABLET (FP) PO SCH (22:30)
[2017-10-21 06:29] LABS: BASO % 0.3 % (0-2.0); HEMATOCRIT 32.4 % (32.4-45.2); HEMOGLOBIN 10.6 GM/dL (10.7-15.3); LYMPH % 19.3 % (8-40); MCH 25.1 pg (25.7-33.7); MCHC 32.6 g/dl (32.0-36.0); MEAN CELL VOLUME 76.9 fl (80-96); MEAN PLT VOLUME 8.3 fl (7.5-11.1); NEUT % 77.4 % (42.8-82.8); PLATELET COUNT 250 K/MM3 (134-434); RBC 4.21 M/mm3 (3.60-5.2); RDW 17.4 % (11.6-15.6); WHITE BLOOD COUNT 7.5 K/mm3 (4.0-10.0)
[2017-10-21 06:57] LABS: ALBUMIN 3.1 g/dl (3.4-5.0); BLOOD UREA NITROGEN 14 mg/dL (7-18); CALCIUM 8.7 mg/dL (8.5-10.1); CO2 26 mmol/L (21-32); GLUCOSE,RANDOM 113 mg/dL (74-106); SGOT/AST 13 U/L (15-37); SGPT/ALT 20 U/L (12-78)
[2017-10-21 07:00] LABS: ALK PHOS 81 U/L (45-117); BILIRUBIN,TOTAL 0.3 mg/dL (0.2-1.0); CREATININE 0.6 mg/dL (0.55-1.02); TOT PROT 6.4 g/dl (6.4-8.2)
[2017-10-21] MEDS: RANITIDINE HCL 150 MG TABLET (FP) PO SCH ×3 (09:38→21:02)
[2017-10-21] MEDS: ASCORBIC ACID 500 MG TABLET (FP) PO SCH ×2 (09:38→09:40)
[2017-10-21] MEDS: ASPIRIN COATED 81 MG TABLET.EC PO SCH ×2 (09:38→09:40)
[2017-10-21 09:55] LABS: ANION GAP 9 (8-16); CHLORIDE 109 mmol/L (98-107); POTASSIUM 3.8 mmol/L (3.5-5.1); SODIUM 143 mmol/L (136-145)
[2017-10-21] MEDS ORDERED: PATIENT'S OWN MEDICATION (NON-FORMULARY) (Amlodipine Bes/Olmesartan Med [Azor 10-40 Mg Tab PO SCH (10:00)
[2017-10-21] MEDS ORDERED: IBUPROFEN 400 MG TABLET (FP) PO ONE (17:00)
--- NOTE | 2017-10-21 22:48 | PN ---
Progress Note, Physician History of Present Illness: Pt feeling weak - Current Medication List Current Medications: Active Medications Ascorbic Acid (Vitamin C -) 500 mg PO DAILY [facility] Last Admin: 10/21/17 09:40 Dose: Not Given Aspirin (Ecotrin -) 81 mg PO DAILY [facility] Last Admin: 10/21/17 09:40 Dose: Not Given Diphenhydramine HCl (Benadryl -) 25 mg PO Q6H PRN PRN Reason: FOR ITCHING Dextrose/Sodium Chloride (D5-1/2ns -) 1,000 mls @ 75 mls/hr IV ASDIR [facility] Last Admin: 10/20/17 22:29 Dose: 75 mls/hr Ranitidine HCl (Zantac -) 150 mg PO BID [facility] Last Admin: 10/21/17 21:02 Dose: Not Given - Objective Vital Signs: Vital Signs Temperature 97.8 F 10/21/17 19:58 Pulse Rate 66 10/21/17 19:58 Respiratory Rate 20 10/21/17 19:59 Blood Pressure 123/73 10/21/17 19:58 O2 Sat by Pulse Oximetry (%) 100 10/21/17 19:59 Neck: Yes: WNL, Supple Cardiovascular: Yes: WNL, Regular Rate and Rhythm Respiratory: Yes: WNL, Regular, CTA Bilaterally Gastrointestinal: Yes: WNL, Normal Bowel Sounds, Soft Labs: CBC, BMP 10/21/17 05:30 10/21/17 05:30 Problem List - Problems (1) Syncope Code(s): R55 - SYNCOPE AND COLLAPSE (2) Hypertension Code(s): I10 - ESSENTIAL (PRIMARY) HYPERTENSION
[2017-10-22] MEDS: DEXTROSE 5%-0.45% SALINE 1,000 ML IV SCH (02:40)
--- NOTE | 2017-10-22 08:20 | CON.CARD ---
Cardiology Consult (text) - Consultation Consultation Note: Cardiology Consult Dictated IMP: Probable allergic reaction to allergen used in desensitization Mild MR Chronic HTN Possible [facility]RI[facility]IANO REC: Based on history and timing and events, this is likely allergic reaction Thus far no arrhythmias to explain sx; normal LV fx. Negative nuclear stress test 09/2016. Recent carotid US non-obstx. Will check 2nd set cardiac enzymes Outpatient sleep study.
[2017-10-22 08:33] VITALS: BP 140/76; PULSE 58; TEMP 98
--- NOTE | 2017-10-22 09:08 | CONS ---
DATE OF CONSULTATION: 10/22/2017 CONSULTATION REQUESTED BY: Gabrielle Green MD REASON FOR CONSULTATION: Syncope. The patient is a 57-year-old female known to me from office practice with past medical history of hypertension, mild mitral regurgitation, GERD, who presented to the emergency room yesterday. Patient was seeing ENT due to multiple environmental allergies and was undergoing desensitization allergen immunotherapy. She was in the office and had received an allergy shot, several minutes later developed nausea, dizziness, with a syncopal episode. Per records, she was given intramuscular epinephrine with immediate recovery. We called 911, and she was brought to the ER by EMS for this presumed anaphylactic reaction. She was initially found to be hypotensive and was given IV fluids. The patient was seen and examined on telemetry. Review of overnight telemetry shows no significant arrhythmias. She does have some mild nocturnal bradycardia with rare PVCs, which raises the suspicion for possible chronic obstructive sleep apnea. No significant pauses or sustained arrhythmias were detected. She currently denies chest pain, shortness of breath, palpitations, dizziness, or lightheadedness. She has had no recurrence of her symptoms. Of note, the patient has undergone a negative cardiac workup in the office within the last year, including a nuclear stress test in September of 2016 which showed no ischemia and normal EF. Recent echo and carotid ultrasound have also been performed in the office showing normal LV function, mild MR, and no significant carotid disease. An echo was repeated here yesterday showing moderate TR, mild MR, normal LV function, and no significant pulmonary hypertension. The patient has been saturating 100% on room air. PAST MEDICAL HISTORY: As above, and is significant for hypertension, hyperlipidemia, GERD, hearing loss with cochlear implants, environmental allergies. ALLERGIES: She has allergies to SHELLFISH and CERTAIN FRUITS. CURRENT MEDICATIONS: Include Vitamin C 500 mg daily, aspirin 81 mg daily, Benadryl 25 mg p.o. q.6 p.r.n., Zantac 150 p.o. b.i.d. At home she was taking Alvarado 10/40 mg daily for chronic hypertension. FAMILY HISTORY: Negative for early CAD. SOCIAL HISTORY: Denies alcohol, illegal drugs, or tobacco. PHYSICAL EXAMINATION: General: Comfortable, afebrile, no acute distress. Vital Signs: Temperature 97.8. She has been afebrile. Pulse ranging between 66 and 88 during waking hours, in normal sinus rhythm. Blood pressure 123/70. O2 saturation 100 on room air. Breathing at 12 times per minute. HEENT: She is anicteric with no carotid bruits or JVD. Cardiovascular: The heart was regular with no murmurs, rubs, or gallops. Chest: Clear bilaterally, anteriorly and posteriorly, with no rales or wheezing. Abdomen: Soft and nontender. Extremities: Warm, well perfused, with no edema. LABORATORY: White count 7.5, hematocrit 32.4, platelets 250. Sodium 143, potassium 3.8, BUN/creatinine 14/0.6. LFTs are normal. CK and troponin are negative x1 set. The second set is pending. IMPRESSION: 1. Probable allergic reaction to an allergen used in desensitization. 2. Mild mitral regurgitation. 3. Chronic hypertension. 4. Possible obstructive sleep apnea. RECOMMENDATIONS: 1. Based on history and timing of events, this is likely an allergic reaction that has resolved. Thus far there have been no arrhythmias to explain her symptoms, and her LV function is normal. Ischemic workup including negative nuclear stress test in September of 2016 makes coronary artery disease unlikely. She also has recent nonobstructive carotid ultrasound, which is also being repeated now. 2. Will check a second set of cardiac enzymes. If those are negative, can discontinue telemetry. 3. Based on overnight telemetry showing mild sinus bradycardia and rare PVCs, there is a suspicion of chronic sleep apnea which can be worked up as an outpatient. Thank you for the consultation. JORDI TORRES M.D. [id number]
[2017-10-22] MEDS: ASPIRIN COATED 81 MG TABLET.EC PO SCH (11:06)
[2017-10-22] MEDS: ASCORBIC ACID 500 MG TABLET (FP) PO SCH (11:06)
[2017-10-22] MEDS: RANITIDINE HCL 150 MG TABLET (FP) PO SCH (11:06)
--- NOTE | 2017-10-22 11:58 | DS ---
Physical Examination Vital Signs: Vital Signs Temperature 98 F 10/22/17 08:32 Pulse Rate 58 L 10/22/17 08:32 Respiratory Rate 18 10/22/17 08:32 Blood Pressure 140/76 10/22/17 08:32 O2 Sat by Pulse Oximetry (%) 98 10/22/17 08:36 Labs: CBC, BMP 10/21/17 05:30 10/21/17 05:30 Discharge Summary Reason For Visit: ANAPHYLAXIS Current Active Problems Anaphylaxis (Acute) Syncope (Acute) Condition: Improved - Instructions Diet, Activity, Other Instructions: 2 gram sodium diet See Dr Singh in 1 week Referrals: Ammon Singh MD [Primary Care Provider] - Disposition: HOME - Home Medications Comprehensive Discharge Medication List: Ambulatory Orders Amlodipine Bes/Olmesartan Med [Alvarado 10-40 mg Tablet] 1 each PO DAILY 10/20/17 Ascorbic Acid [Vitamin C] 500 mg PO DAILY 10/20/17 Aspirin [Ecotrin] 81 mg PO DAILY 10/20/17 Pantoprazole Sodium [Protonix] 40 mg PO DAILY 10/20/17
== END 2017-10-22 13:14 | disposition home or self-care (01) ==
LOC: JER 11:25 → INTOOBSV 13:51 → JERBED 13:51 → J4W 21:35
PROVIDERS: ADMIT Internal Medicine; ATTEND Internal Medicine
PROC: 3E0333Z Introduction of Anti-inflammatory into Peripheral Vein, Percutaneous Approach (ICD-10-PCS; principal; 2017-10-20)
PROC: 3E033GC Introduction of Other Therapeutic Substance into Peripheral Vein, Percutaneous Approach (ICD-10-PCS; 2017-10-20)
PROC: 3E0337Z Introduction of Electrolytic and Water Balance Substance into Peripheral Vein, Percutaneous Approach (ICD-10-PCS; 2017-10-20)
DX: T78.2XXA Anaphylactic shock, unspecified, initial encounter (principal); R55 Syncope and collapse; I10 Essential (primary) hypertension; E78.5 Hyperlipidemia, unspecified; K21.9 Gastro-esophageal reflux disease without esophagitis; H91.90 Unspecified hearing loss, unspecified ear
CPT/HCPCS: 36415; 80053; 82550; 84484; 85025; 93005; 93010; 93306-TC; 93880-TC; 96365; 96375; 99283-25; G0378; J7030

== ENCOUNTER 2020-09-27 13:53 | Emergency (ER) | payer OTHER ==
[2020-09-27 15:04] VITALS: BMI 32.5
[2020-09-27] MEDS ORDERED: ACETAMINOPHEN 500 MG TABLET (FP) PO ONE (15:41)
[2020-09-27] MEDS ORDERED: ASPIRIN 81 MG CHEWABLE TABLETS ONE (15:42)
[2020-09-27] MEDS ORDERED: ACETAMINOPHEN 325 MG TABLET (FP) ONE (15:56)
[2020-09-27 17:12] LABS: BASO % 0.3 % (0-2.0); EOS % 0.3 % (0-4.5); HEMATOCRIT 32.8 % (32.4-45.2); HEMOGLOBIN 10.7 GM/dL (10.7-15.3); LYMPH % 25.1 % (8-40); MCH 28.2 pg (25.7-33.7); MCHC 32.6 g/dl (32.0-36.0); MEAN CELL VOLUME 86.6 fl (80-96); MEAN PLT VOLUME 8.1 fl (7.5-11.1); MONO % 5.7 % (3.8-10.2); NEUT % 68.6 % (42.8-82.8); PLATELET COUNT 247 K/MM3 (134-434); RBC 3.78 M/mm3 (3.60-5.2); RDW 17.6 % (11.6-15.6); WHITE BLOOD COUNT 3.7 K/mm3 (4.0-10.0)
[2020-09-27 17:17] LABS: INR 0.95 (0.83-1.09); PROTHROMBIN TIME (PATIENT) 11.5 SEC (9.7-13.0)
[2020-09-27 17:20] LABS: ACTIVATED PTT 29.3 SECONDS (25.2-36.5)
[2020-09-27 17:25] LABS: CHLORIDE 104 mmol/L (98-107); SODIUM 141 mmol/L (136-145)
[2020-09-27 17:27] LABS: CALCIUM 9.6 mg/dL (8.5-10.1)
[2020-09-27 17:28] LABS: ALBUMIN 4.1 g/dl (3.4-5.0); ANION GAP 9 MMOL/L (8-16); BLOOD UREA NITROGEN 8.3 mg/dL (7-18); CO2 29 mmol/L (21-32); GLUCOSE,RANDOM 82 mg/dL (74-106)
[2020-09-27 17:31] LABS: CREATININE 0.7 mg/dL (0.55-1.3); SGOT/AST 22 U/L (15-37); SGPT/ALT 19 U/L (13-61)
[2020-09-27 17:33] LABS: TOT PROT 7.4 g/dl (6.4-8.2)
[2020-09-27 17:34] LABS: ALK PHOS 93 U/L (45-117)
[2020-09-27 17:39] LABS: BILIRUBIN,TOTAL 0.4 mg/dL (0.2-1)
[2020-09-27 21:38] VITALS: BP 127/80; PULSE 80; TEMP 98.3
== END 2020-09-27 23:00 | disposition home or self-care (01) ==
LOC: JER 13:53
DX: R07.9 Chest pain, unspecified (principal)
CPT/HCPCS: 36415; 71045-TC-FY; 80053; 84484; 85025; 85610; 85730; 93005; 93010; 99285-25

== ENCOUNTER 2020-12-09 03:36 | Inpatient (IN) | payer OTHER ==
[2020-12-09 04:54] LABS: BASO % 0.2 % (0-2.0); EOS % 0.1 % (0-4.5); HEMATOCRIT 30.9 % (32.4-45.2); HEMOGLOBIN 10.1 GM/dL (10.7-15.3); LYMPH % 2.1 % (8-40); MCHC 32.7 g/dl (32.0-36.0); MEAN CELL VOLUME 82.7 fl (80-96); MEAN PLT VOLUME 7.9 fl (7.5-11.1); MONO % 1.7 % (3.8-10.2); NEUT % 95.9 % (42.8-82.8); PLATELET COUNT 241 10^3/uL (134-434); RBC 3.73 M/mm3 (3.60-5.2); RDW 18.5 % (11.6-15.6); WHITE BLOOD COUNT 50.6 K/mm3 (4.0-10.0)
[2020-12-09 05:09] LABS: INR 0.99 (0.83-1.09); PROTHROMBIN TIME (PATIENT) 12.2 SEC (9.7-13.0)
[2020-12-09 05:11] LABS: CHLORIDE 104 mmol/L (98-107); SODIUM 140 mmol/L (136-145)
[2020-12-09 05:12] LABS: ACTIVATED PTT 26.6 SECONDS (25.2-36.5)
[2020-12-09 05:13] LABS: CALCIUM 8.5 mg/dL (8.5-10.1)
[2020-12-09 05:14] LABS: ALBUMIN 3.6 g/dl (3.4-5.0); ANION GAP 10 MMOL/L (8-16); BLOOD UREA NITROGEN 11.7 mg/dL (7-18); CO2 26 mmol/L (21-32); GLUCOSE,RANDOM 104 mg/dL (74-106)
[2020-12-09 05:17] LABS: CREATININE 0.7 mg/dL (0.55-1.3); SGOT/AST 13 U/L (15-37); SGPT/ALT 18 U/L (13-61)
[2020-12-09 05:19] LABS: BILIRUBIN,TOTAL 0.3 mg/dL (0.2-1); TOT PROT 7.1 g/dl (6.4-8.2)
[2020-12-09 05:20] LABS: ALK PHOS 129 U/L (45-117)
[2020-12-09] MEDS ORDERED: ACETAMINOPHEN 1000 MG/100 ML VIAL (NON FORMULARY) IVPB ONE (05:21)
[2020-12-09] MEDS ORDERED: ACETAMINOPHEN INJECTION 100 ML IVPB ONE (05:25)
[2020-12-09 05:43] LABS: ANISOCYTOSIS 0; MACROCYTOSIS 0; PLATELET ESTIMATE NORMAL; TARGET CELLS 1+; TEAR DROP CELLS 1+
[2020-12-09] MEDS ORDERED: ASPIRIN 81 MG CHEWABLE TABLETS PO ONE (06:22)
[2020-12-09] MEDS ORDERED: ASPIRIN 81 MG CHEWABLE TABLETS ONE (07:07)
[2020-12-09] MEDS ORDERED: POTASSIUM CHLORIDE TABS 20 MEQ TABLET.ER (FP) PO ONE ×2 (07:12→07:19)
[2020-12-09 07:54] LABS: MAGNESIUM 1.5 mg/dL (1.8-2.4)
[2020-12-09 07:58] LABS: PHOSPHOROUS 2.8 mg/dL (2.5-4.9)
[2020-12-09] MEDS ORDERED: ACETAMINOPHEN 500 MG TABLET (FP) PO ONE (09:16)
[2020-12-09] MEDS ORDERED: ACETAMINOPHEN 500 MG TABLET (FP) ONE (09:20)
[2020-12-09] MEDS ORDERED: ONDANSETRON 4 MG/2 ML VIAL IVPUSH PRN (12:51)
[2020-12-10 08:12] LABS: HEMATOCRIT 29.5 % (32.4-45.2); HEMOGLOBIN 9.7 GM/dL (10.7-15.3); MCH 27.8 pg (25.7-33.7); MCHC 32.7 g/dl (32.0-36.0); MEAN CELL VOLUME 84.9 fl (80-96); MEAN PLT VOLUME 8.6 fl (7.5-11.1); PLATELET COUNT 239 10^3/uL (134-434); RBC 3.47 M/mm3 (3.60-5.2); RDW 18.9 % (11.6-15.6)
[2020-12-10 08:18] LABS: WHITE BLOOD COUNT 35.4 K/mm3 (4.0-10.0)
[2020-12-10 08:42] LABS: CALCIUM 8.1 mg/dL (8.5-10.1)
[2020-12-10 08:49] LABS: CREATININE 0.6 mg/dL (0.55-1.3)
[2020-12-10] MEDS ORDERED: ASCORBIC ACID 500 MG TABLET (FP) ONE (09:53)
[2020-12-10] MEDS ORDERED: ASPIRIN COATED 81 MG TABLET.EC ONE (09:53)
[2020-12-10] MEDS ORDERED: PANTOPRAZOLE SODIUM 40 MG VIAL ONE (09:54)
[2020-12-10] MEDS ORDERED: amLODIPine BESYLATE 5 MG TABLET (FP) ONE (09:54)
[2020-12-10] MEDS ORDERED: LOSARTAN POTASSIUM 50 MG TABLET ONE (09:54)
[2020-12-10] MEDS ORDERED: ENOXAPARIN NA (PORCINE) 40 MG/0.4 ML DISP.SYRIN SQ ONE (09:54)
[2020-12-10] MEDS ORDERED: PATIENT'S OWN MEDICATION (NON-FORMULARY) (Amlodipine Bes/Olmesartan Med [Azor 10-40 Mg Tab PO SCH (10:00)
[2020-12-10] MEDS: ASCORBIC ACID 500 MG TABLET (FP) PO SCH (10:05)
[2020-12-10] MEDS: PANTOPRAZOLE 40 MG TABLET PO SCH (10:05)
[2020-12-10] MEDS: ASPIRIN COATED 81 MG TABLET.EC PO SCH (10:05)
[2020-12-10] MEDS: LOSARTAN POTASSIUM 50 MG TABLET PO SCH (10:05)
[2020-12-10] MEDS: amLODIPine BESYLATE 10 MG TABLET (FP) PO SCH (10:05)
[2020-12-10] MEDS: ENOXAPARIN NA (PORCINE) 40 MG/0.4 ML DISP.SYRIN SQ SCH (10:05)
[2020-12-10 11:57] LABS: EPI CELLS 36 /uL (0-25.1); HYALINE CASTS 15 /uL (0-3.1); URINE APPEARANCE CLOUDY; URINE BACTERIA 407 /uL (0-1359); URINE BILIRUBIN NEGATIVE (NEGATIVE); URINE COLOR YELLOW; URINE GLUCOSE (UA) NEGATIVE (NEGATIVE); URINE KETONE TRACE (NEGATIVE); URINE LEUK ESTERASE 2+ (NEGATIVE); URINE NITRITE NEGATIVE (NEGATIVE); URINE PROTEIN TRACE (NEGATIVE); URINE RBC 19 /uL (0-23.9); URINE UROBILINOGEN 0.2 mg/dL (0.2-1.0); URINE WBC 575 /uL (0-25.8)
[2020-12-10] MEDS ORDERED: CEFTRIAXONE 1 GM/50 ML BAG ONE (12:37)
[2020-12-10] MEDS: CEFTRIAXONE 1 GM in DEXTROSE 5%-WATER - 50 ML IVPB SCH (12:41)
[2020-12-10] MEDS ORDERED: POTASSIUM CHLORIDE TABS 20 MEQ TABLET.ER (FP) PO ONE ×2 (19:00→20:09)
[2020-12-10] MEDS ORDERED: ACETAMINOPHEN 325 MG TABLET (FP) ONE (23:05)
[2020-12-10] MEDS: ACETAMINOPHEN 325 MG TABLET (FP) PO PRN (23:06)
[2020-12-11 01:29] VITALS: BMI 32.1
[2020-12-11] MEDS: ACETAMINOPHEN 325 MG TABLET (FP) PO PRN (06:41)
[2020-12-11 07:37] LABS: BASO % 0.4 % (0-2.0); EOS % 0.6 % (0-4.5); HEMOGLOBIN 9.9 GM/dL (10.7-15.3); LYMPH % 4.9 % (8-40); MCH 27.6 pg (25.7-33.7); MEAN CELL VOLUME 83.5 fl (80-96); MEAN PLT VOLUME 8.5 fl (7.5-11.1); NEUT % 91.1 % (42.8-82.8); PLATELET COUNT 238 10^3/uL (134-434); RBC 3.59 M/mm3 (3.60-5.2); RDW 18.9 % (11.6-15.6); WHITE BLOOD COUNT 24.7 K/mm3 (4.0-10.0)
[2020-12-11 08:07] LABS: BLOOD UREA NITROGEN 12.6 mg/dL (7-18); CALCIUM 8.6 mg/dL (8.5-10.1); MAGNESIUM 1.9 mg/dL (1.8-2.4)
[2020-12-11 08:10] LABS: CREATININE 0.5 mg/dL (0.55-1.3)
[2020-12-11 08:12] LABS: BILIRUBIN,TOTAL 0.3 mg/dL (0.2-1); TOT PROT 6.2 g/dl (6.4-8.2)
[2020-12-11 09:02] LABS: ANISOCYTOSIS 0; HELMET CELLS 0; HOWELL-JOLLY BODIES 0; MACROCYTOSIS 0; OVALOCYTE 0; PLATELET ESTIMATE NORMAL; ROULEAU 0; SICKELED CELLS 0; TARGET CELLS 0; TEAR DROP CELLS 0; TOXIC GRANULATION 0
[2020-12-11 09:11] LABS: ALBUMIN 2.8 g/dl (3.4-5.0)
[2020-12-11] MEDS ORDERED: SODIUM CHLORIDE NASAL SPRAY 44 ML BOTTLE NS PRN (09:15)
[2020-12-11] MEDS ORDERED: DEXTROSE 5%-WATER - 50 ML IVPB ONE (09:47)
[2020-12-11] MEDS ORDERED: cefTRIAXone SODIUM 1 GM VIAL ONE (09:47)
[2020-12-11] MEDS: ASCORBIC ACID 500 MG TABLET (FP) PO SCH (09:59)
[2020-12-11] MEDS: PANTOPRAZOLE 40 MG TABLET PO SCH (09:59)
[2020-12-11] MEDS: amLODIPine BESYLATE 10 MG TABLET (FP) PO SCH (09:59)
[2020-12-11] MEDS: ENOXAPARIN NA (PORCINE) 40 MG/0.4 ML DISP.SYRIN SQ SCH (09:59)
[2020-12-11] MEDS: LOSARTAN POTASSIUM 50 MG TABLET PO SCH (09:59)
[2020-12-11] MEDS: ASPIRIN COATED 81 MG TABLET.EC PO SCH (09:59)
[2020-12-11] MEDS: CEFTRIAXONE 1 GM in DEXTROSE 5%-WATER - 50 ML IVPB SCH (10:00)
[2020-12-12] MEDS ORDERED: cefTRIAXone SODIUM 1 GM VIAL ONE (10:03)
[2020-12-12] MEDS ORDERED: DEXTROSE 5%-WATER - 50 ML IVPB ONE (10:03)
[2020-12-12] MEDS: LOSARTAN POTASSIUM 50 MG TABLET PO SCH (10:05)
[2020-12-12] MEDS: amLODIPine BESYLATE 10 MG TABLET (FP) PO SCH (10:05)
[2020-12-12] MEDS: PANTOPRAZOLE 40 MG TABLET PO SCH (10:05)
[2020-12-12] MEDS: ENOXAPARIN NA (PORCINE) 40 MG/0.4 ML DISP.SYRIN SQ SCH (10:05)
[2020-12-12] MEDS: ASPIRIN COATED 81 MG TABLET.EC PO SCH (10:05)
[2020-12-12] MEDS: CEFTRIAXONE 1 GM in DEXTROSE 5%-WATER - 50 ML IVPB SCH (10:05)
[2020-12-12] MEDS: ASCORBIC ACID 500 MG TABLET (FP) PO SCH (10:05)
[2020-12-12 17:25] LABS: BASO % 0.8 % (0-2.0); EOS % 1.7 % (0-4.5); HEMATOCRIT 29.7 % (32.4-45.2); HEMOGLOBIN 9.7 GM/dL (10.7-15.3); LYMPH % 13.3 % (8-40); MCH 27.4 pg (25.7-33.7); MCHC 32.7 g/dl (32.0-36.0); MEAN PLT VOLUME 8.5 fl (7.5-11.1); MONO % 6.7 % (3.8-10.2); NEUT % 77.5 % (42.8-82.8); PLATELET COUNT 257 10^3/uL (134-434); RBC 3.54 M/mm3 (3.60-5.2); RDW 18.7 % (11.6-15.6); WHITE BLOOD COUNT 13.4 K/mm3 (4.0-10.0)
[2020-12-12 17:46] LABS: CALCIUM 8.3 mg/dL (8.5-10.1)
[2020-12-12 17:47] LABS: ALBUMIN 2.7 g/dl (3.4-5.0); BLOOD UREA NITROGEN 12.9 mg/dL (7-18); MAGNESIUM 1.8 mg/dL (1.8-2.4)
[2020-12-12 17:50] LABS: CREATININE 0.7 mg/dL (0.55-1.3)
[2020-12-12 17:51] LABS: BILIRUBIN,TOTAL 0.2 mg/dL (0.2-1); TOT PROT 6.3 g/dl (6.4-8.2)
[2020-12-12 18:32] LABS: ANISOCYTOSIS 1+; MACROCYTOSIS 1+; PLATELET ESTIMATE ADEQUATE
[2020-12-12 18:33] LABS: OVALOCYTE 1+
[2020-12-13 07:41] LABS: BASO % 1.3 % (0-2.0); EOS % 1.6 % (0-4.5); HEMATOCRIT 31.1 % (32.4-45.2); HEMOGLOBIN 10.2 GM/dL (10.7-15.3); LYMPH % 11.7 % (8-40); MCH 28.1 pg (25.7-33.7); MEAN CELL VOLUME 85.2 fl (80-96); MEAN PLT VOLUME 8.8 fl (7.5-11.1); MONO % 5.8 % (3.8-10.2); NEUT % 79.6 % (42.8-82.8); PLATELET COUNT 273 10^3/uL (134-434); RBC 3.65 M/mm3 (3.60-5.2); RDW 18.4 % (11.6-15.6); WHITE BLOOD COUNT 13.2 K/mm3 (4.0-10.0)
[2020-12-13 07:52] LABS: CALCIUM 8.6 mg/dL (8.5-10.1)
[2020-12-13 07:53] LABS: ALBUMIN 2.8 g/dl (3.4-5.0); BLOOD UREA NITROGEN 14.5 mg/dL (7-18); MAGNESIUM 1.8 mg/dL (1.8-2.4)
[2020-12-13 07:56] LABS: CREATININE 0.6 mg/dL (0.55-1.3)
[2020-12-13 07:57] LABS: BILIRUBIN,TOTAL 0.2 mg/dL (0.2-1); TOT PROT 6.2 g/dl (6.4-8.2)
[2020-12-13 09:00] LABS: PLATELET ESTIMATE ADEQUATE
[2020-12-13] MEDS ORDERED: cefTRIAXone SODIUM 1 GM VIAL ONE (09:31)
[2020-12-13] MEDS ORDERED: DEXTROSE 5%-WATER - 50 ML IVPB ONE (09:31)
[2020-12-13] MEDS: LOSARTAN POTASSIUM 50 MG TABLET PO SCH (09:42)
[2020-12-13] MEDS: ASPIRIN COATED 81 MG TABLET.EC PO SCH (09:42)
[2020-12-13] MEDS: ENOXAPARIN NA (PORCINE) 40 MG/0.4 ML DISP.SYRIN SQ SCH (09:42)
[2020-12-13] MEDS: PANTOPRAZOLE 40 MG TABLET PO SCH (09:42)
[2020-12-13] MEDS: CEFTRIAXONE 1 GM in DEXTROSE 5%-WATER - 50 ML IVPB SCH (09:42)
[2020-12-13] MEDS: amLODIPine BESYLATE 10 MG TABLET (FP) PO SCH (09:42)
[2020-12-13] MEDS: ASCORBIC ACID 500 MG TABLET (FP) PO SCH (09:42)
[2020-12-13 15:19] VITALS: BP 129/84; PULSE 83; TEMP 98.4
== END 2020-12-13 17:07 | disposition home or self-care (01) | DRG 663 ==
LOC: JER 03:36 → JERBED 06:37 → OBSVTOIN 12:51 → J4W 12-10 23:16
PROVIDERS: ADMIT Internal Medicine; ATTEND Nurse Practitioner Acute Care
DX: D72.829 Elevated white blood cell count, unspecified (principal); E78.5 Hyperlipidemia, unspecified; K21.9 Gastro-esophageal reflux disease without esophagitis; R07.1 Chest pain on breathing; R07.81 Pleurodynia; T45.8X5A Adverse effect of other primarily systemic and hematological agents, initial encounter; I10 Essential (primary) hypertension; C78.00 Secondary malignant neoplasm of unspecified lung; C56.9 Malignant neoplasm of unspecified ovary; D64.9 Anemia, unspecified; E87.6 Hypokalemia
CPT/HCPCS: 36415; 71045-TC-FY; 80048; 80053; 81003; 83605; 83735; 84100; 84484; 85025; 85027; 85610; 85730; 87040; 87086; 93005; 93010; 93306-TC; 99285-25; C9803; G0378; J0131; U0003; U0005

== ENCOUNTER 2021-01-26 07:01 | Emergency (ER) | payer OTHER ==
[2021-01-26 07:21] VITALS: BP 141/82; PULSE 77; TEMP 98; BMI 31.4
[2021-01-26 08:50] LABS: BASO % 1.6 % (0-2.0); EOS % 3.1 % (0-4.5); HEMATOCRIT 36.6 % (32.4-45.2); HEMOGLOBIN 11.6 GM/dL (10.7-15.3); MCHC 31.8 g/dl (32.0-36.0); MEAN CELL VOLUME 88.1 fl (80-96); MONO % 8.1 % (3.8-10.2); NEUT % 70.2 % (42.8-82.8); PLATELET COUNT 145 10^3/uL (134-434); RBC 4.15 M/mm3 (3.60-5.2); RDW 20.2 % (11.6-15.6); WHITE BLOOD COUNT 3.7 K/mm3 (4.0-10.0)
== END 2021-01-26 09:09 | disposition home or self-care (01) ==
LOC: JER 07:01
DX: R04.0 Epistaxis (principal); S00.31XA Abrasion of nose, initial encounter
CPT/HCPCS: 36415; 85025; 99283-25

== ENCOUNTER 2021-03-27 08:39 | Emergency (ER) | payer OTHER ==
[2021-03-27 08:47] VITALS: BP 152/77; PULSE 91; TEMP 98.6; BMI 31.4
[2021-03-27] MEDS ORDERED: LIDOCAINE VISCOUS 2% ORAL/TOP 15 ML UNIT-DOSE CUP MM ONE (09:24)
[2021-03-27] MEDS ORDERED: DEXAMETHASONE LIQUID 0.5 MG/5 ML PO ONE (09:24)
[2021-03-27] MEDS ORDERED: LIDOCAINE VISCOUS 2% ORAL/TOP 15 ML UNIT-DOSE CUP ONE (10:35)
[2021-03-27] MEDS ORDERED: DEXAMETHASONE SOD PHOSPHATE 10 MG/1 ML VIAL ONE (10:35)
== END 2021-03-27 10:46 | disposition home or self-care (01) ==
LOC: JER 08:39
DX: J02.9 Acute pharyngitis, unspecified (principal)
CPT/HCPCS: 87651; 99283-25

== ENCOUNTER 2021-04-30 09:36 | Emergency (ER) | payer OTHER ==
[2021-04-30 09:55] VITALS: BP 142/79; PULSE 81; TEMP 97.6; BMI 32.0
[2021-05-02 00:06] LABS: SARS-CoV-2 NAA Detected (Not Detected)
== END 2021-04-30 11:58 | disposition home or self-care (01) ==
LOC: JER 09:36
DX: R05.9 Cough, unspecified (principal)
CPT/HCPCS: 99283-25; C9803; U0003; U0005

== ENCOUNTER 2021-05-18 16:42 | Emergency (ER) | payer OTHER ==
[2021-05-18 17:06] VITALS: BP 122/71; PULSE 92; TEMP 97.8; BMI 31.6
[2021-05-18 20:14] LABS: BASO % 1.1 % (0-2.0); EOS % 1.3 % (0-4.5); HEMOGLOBIN 9.8 GM/dL (10.7-15.3); LYMPH % 39.6 % (8-40); MCH 27.1 pg (25.7-33.7); MCHC 32.6 g/dl (32.0-36.0); MEAN PLT VOLUME 8.1 fl (7.5-11.1); MONO % 15.3 % (3.8-10.2); NEUT % 42.7 % (42.8-82.8); PLATELET COUNT 292 10^3/uL (134-434); RBC 3.61 M/mm3 (3.60-5.2); RDW 18.5 % (11.6-15.6); WHITE BLOOD COUNT 2.1 K/mm3 (4.0-10.0)
[2021-05-18 20:20] LABS: CHLORIDE 106 mmol/L (98-107); SODIUM 141 mmol/L (136-145)
[2021-05-18 20:22] LABS: ALBUMIN 3.6 g/dl (3.4-5.0); ANION GAP 9 MMOL/L (8-16); CALCIUM 9.4 mg/dL (8.5-10.1); CO2 26 mmol/L (21-32); GLUCOSE,RANDOM 93 mg/dL (74-106)
[2021-05-18 20:23] LABS: BLOOD UREA NITROGEN 12.1 mg/dL (7-18)
[2021-05-18 20:25] LABS: SGOT/AST 16 U/L (15-37); SGPT/ALT 20 U/L (13-61)
[2021-05-18 20:26] LABS: CREATININE 0.6 mg/dL (0.55-1.3)
[2021-05-18 20:27] LABS: BILIRUBIN,TOTAL 0.3 mg/dL (0.2-1); TOT PROT 7.2 g/dl (6.4-8.2)
[2021-05-18 20:28] LABS: ALK PHOS 109 U/L (45-117)
[2021-05-18] MEDS ORDERED: ACETAMINOPHEN 325 MG TABLET (FP) PO ONE (21:08)
[2021-05-18] MEDS ORDERED: ACETAMINOPHEN 325 MG TABLET (FP) ONE (21:12)
[2021-05-19 16:11] LABS: SARS-CoV-2 NAA Not Detected (Not Detected)
== END 2021-05-18 21:35 | disposition home or self-care (01) ==
LOC: JER 16:42
DX: R07.89 Other chest pain (principal)
CPT/HCPCS: 36415; 71046-TC-FY; 80053; 82550; 84484; 85025; 93005; 93010; 99285-25; C9803; U0003; U0005